=== PATIENT | female | born 1995 | race Caucasian/White ===

== ENCOUNTER 2017-03-20 12:50 | Emergency (ER) | payer OTHER ==
[~2017-03-20] VITALS: Ht 160 cm; Wt 60.0 kg
[2017-03-20 12:52] VITALS: BP 124/84; PULSE 78; RESP 16; TEMP 98.2; O2SAT 100
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
[2017-03-20] MEDS ORDERED: BACITRACIN OINT 0.9 GM PKT TOPICAL ONE (13:30)
[2017-03-20] MEDS ORDERED: TETANUS/DIPHTHERIA TOXOID ADULT 0.5 ML VIAL IM ONE (13:30)
[2017-03-20] MEDS ORDERED: BACI500O9 TOPICAL (13:42)
[2017-03-20] MEDS ORDERED: TYLETAB34 PO (13:43)
[2017-03-20] MEDS ORDERED: IBUP-232 PO (13:43)
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
[2017-03-20] MEDS ORDERED: IBUPROFEN 600 MG TAB PO ONE (13:45)
== END 2017-03-20 14:07 | disposition home or self-care (01) ==
LOC: NEPD 12:50
DX: T20.12XA Burn of first degree of lip(s), initial encounter (principal); X12.XXXA Contact with other hot fluids, initial encounter; Z23 Encounter for immunization
CPT/HCPCS: 16000; 90471; 90714